=== PATIENT | male | born 1970 | race Caucasian/White ===

== ENCOUNTER 2023-04-18 19:04 | Emergency (ER) | payer SELFPAY ==
[~2023-04-18] VITALS: Ht 165.1 cm; Wt 78.5 kg
[2023-04-18 19:04] VITALS: BP_SYST 152; PULSE 73; RESP 18; TEMP 99.1; O2SAT 100
[2023-04-18 19:37] VITALS: BP_SYST 152; PULSE 73; RESP 18; TEMP 99.1; O2SAT 100
== END 2023-04-18 19:37 ==
LOC: SED 19:04
DX: Z02.89 Encounter for other administrative examinations (principal)
CPT/HCPCS: 99283